=== PATIENT | female | born 1980 | race African-American/Black ===

== ENCOUNTER 2017-05-02 05:05 | Emergency (ER) | payer SELFPAY ==
[~2017-05-02] VITALS: Ht 167.6 cm; Wt 90.7 kg
[2017-05-02] MEDS ORDERED: LORazepam 2MG/ML-1ML VIAL IV ONE (07:45)
[2017-05-02] MEDS ORDERED: KETOROLAC TROMETH 30 MG/ML 1ML VIAL IV ONE (07:45)
[2017-05-02 08:08] VITALS: BP 123/89
[2017-05-02] MEDS ORDERED: HYDROmorphone HCL 2 MG/ML VL IV ONE (08:45)
== END 2017-05-02 10:54 | disposition home or self-care (01) ==
LOC: EDBD 05:05 → ER 05:05
DX: S43.004A Unspecified dislocation of right shoulder joint, initial encounter (principal); W18.39XA Other fall on same level, initial encounter; Y93.89 Activity, other specified; Y92.89 Other specified places as the place of occurrence of the external cause; Y99.8 Other external cause status
CPT/HCPCS: 23650; 36415; 71010; 73020; 84702; 94761; 96374; 96375; 99285; J1170; J1885; J2060